=== PATIENT | male | born 2005 | race African-American/Black ===

== ENCOUNTER 2025-05-23 20:44 | Emergency (ER) | payer OTHER, SELFPAY ==
[2025-05-23 20:47] VITALS: BP 128/77
--- NOTE | 2025-05-23 23:07 | ED.GENMED ---
History of Present Illness
General
Chief Complaint: Oral/Mouth Problem
Source: patient
Exam Limitations: none
Time Seen by Provider: 05/23/25 22:02
Nursing documentation reviewed up to this point in time: agreed with
History of Present Illness
History of Present Illness:
19-year-old male with no chronic medical issues presents to the emergency room for evaluation of stiffness in the jaw. Patient reports that since around 4 PM he has had significant stiffness and difficulty opening his jaw on the left side. He
denies any trauma or injury, has not heard any pop/cracking in the jaw. He says this has happened before but never this persistent or significant. He denies any sore throat, fever, chills or any other acute complaints.
Review of Systems
Review of Systems
All Other Systems: ROS reviewed and negative except as documented in HPI and ROS
EENT: Reports other (Jaw pain/stiffness); Denies sore throat
Phy Exam
Physical Exam
Physical Exam:
General: Well appearing and non-toxic
HEENT: protecting airway, no tonsillar erythema or exudate, midline uvula, no trismus; he is able to open his mouth to about 2-1/2 finger breaths with slight asymmetry right opening more than left; he does have some tenderness along the left TMJ but
no palpable dislocation, no swelling, erythema or warmth in the area; he has generally good dentition with no intraoral swelling or lesions
Neck: appears supple
CV: No evidence of cyanosis
Resp: No accessory muscle use
Abd: Non-distended
Extremities: No deformities
Neuro: Alert
Psych: Normal affect
Skin: Intact
Scores
Heart Failure Risk
Heart Failure Risk Score: Not Applicable
Heart Score for Chest Pain Patients
STEMI patient?: Not applicable
Withdrawal Assessment of Alcohol
Withdrawal Assessment Completed?: Not applicable
Course
Orders/Labs/Results
Orders:
Orders
05/23/25 22:07
CR Jaw/mandible Comp Min 4 Vw* Urgent
Comment:
Reason For Exam: jaw pain, trouble opening
Vital Signs
Initial and Last Documented VS:
Initial Vital Signs
Temp Pulse Resp BP Pulse Ox
36.9 C 59 18 128/77 99
05/23/25 20:47 05/23/25 20:47 05/23/25 20:47 05/23/25 20:47 05/23/25 20:47
Last Documented Vital Signs
Temp Pulse Resp BP Pulse Ox
36.9 C 59 18 128/77 99
05/23/25 20:47 05/23/25 20:47 05/23/25 20:47 05/23/25 20:47 05/23/25 20:47
MDM/Problems Addressed
Differential Diagnosis Includes:
TMJ dysfunction, TMJ/mandibular dislocation, dental infection considered less likely based on clinical exam; nothing to suggest symptoms from peritonsillar/retropharyngeal abscess
MDM/Problems Addressed:
19-year-old male presents with stiffness and soreness in the left jaw as described above. Cannot recall any trauma or injury. Vitals and exam as above. Will check x-ray of the mandible. Suspect likely TMJ dysfunction.
*Radiology
Radiology exam reviewed: preliminary read by ED provider
*Pulse Oximetry
SaO2: 99
Oxygen Mode of Delivery: Room air
Patient hypoxic: no (99%)
*Critical Care Note
Total Time (30-74mins, 75-104mins- exclusive of procedures): Not Applicable
Data Reviewed
Source: patient
ED Attending Note
-
Portions of this chart may have been created with voice recognition software.� Occasional wrong word or��sound alike� substitutions may have occurred due to the inherent limitations of voice recognition software.
Discharge Plan
Departure
Referrals:
Jarad Fabian, DO [Family Provider, Pediatrics]
Interventions
Interventions:
*Risk Screen - Suicide Last Done: 05/23/25 20:47
*General Assessment Last Done: 05/23/25 21:44
*Neglect/Abuse Screening Last Done: 05/23/25 20:47
*ED- Fall Risk Assessment Last Done: 05/23/25 21:44
*ED COVID-19 Vaccine History Last Done: 05/23/25 21:44
Discharge Date and Time
Print Language: BURMESE
[2025-05-24 00:28] VITALS: BP 108/63
[2025-05-24 00:57] VITALS: BP 108/63
== END 2025-05-24 00:58 | disposition home or self-care (01) ==
LOC: EMR 20:44
PROVIDERS: EMERGENCY PHYSICIAN Emergency Medicine; FAMILY PHYSICIAN Pediatrics
DX: M26.602 Left temporomandibular joint disorder, unspecified (principal)
CPT/HCPCS: 99283; 70110